=== PATIENT | female | born 1980 | race Two or more races ===

== ENCOUNTER 2019-01-08 10:55 | Emergency (ER) | payer MEDICAID ==
[~2019-01-08] VITALS: Ht 154.9 cm; Wt 76.0 kg
[2019-01-08 10:58] VITALS: BP 115/73
== END 2019-01-08 14:14 | disposition home or self-care (01) ==
LOC: ED 12:09
DX: S82.042A Displaced comminuted fracture of left patella, initial encounter for closed fracture (principal); W01.0XXA Fall on same level from slipping, tripping and stumbling without subsequent striking against object, initial encounter; Y93.89 Activity, other specified; Y92.89 Other specified places as the place of occurrence of the external cause; Y99.8 Other external cause status
CPT/HCPCS: 29505; 99284

== ENCOUNTER 2019-01-15 23:04 | Emergency (ER) | payer MEDICAID ==
[~2019-01-15] VITALS: Ht 154.9 cm; Wt 76.0 kg
[2019-01-15 23:06] VITALS: BP 121/71
== END 2019-01-16 00:18 | disposition home or self-care (01) ==
LOC: ED 01-16 00:01
DX: G89.18 Other acute postprocedural pain (principal); M25.562 Pain in left knee; Z87.891 Personal history of nicotine dependence
CPT/HCPCS: 99283

== ENCOUNTER 2019-10-13 13:57 | Emergency (ER) | payer MEDICAID ==
[~2019-10-13] VITALS: Ht 154.9 cm; Wt 75.0 kg
[2019-10-13 14:04] VITALS: BP 93/62
--- NOTE | 2019-10-13 14:25 | NUR ---
RECEIVED REPORT BARBARA ACOSTA RN. PT RESTING ON [place] W/ CALL LIGHT IN REACH. DENIES FURTHER NEEDS AT THIS TIME.
--- NOTE | 2019-10-13 15:25 | NUR ---
Patient given discharge instructions and they have confirmed that they understand the instructions. Patient ambulatory with steady gait.
== END 2019-10-13 15:26 | disposition home or self-care (01) ==
LOC: ED 14:26
DX: U07.1 COVID-19 (principal); J02.9 Acute pharyngitis, unspecified; R51 Headache; R19.7 Diarrhea, unspecified
CPT/HCPCS: 99283; U0001

== ENCOUNTER 2019-12-14 14:53 | Emergency (ER) | payer MEDICAID ==
[~2019-12-14] VITALS: Ht 154.9 cm; Wt 83.0 kg
[2019-12-14] MEDS ORDERED: ACETAMINOPHEN 325 MG TABLET PO ONE (15:30)
[2019-12-14] MEDS ORDERED: ACETAMINOPHEN 325 MG TABLET ONE (15:33)
--- NOTE | 2019-12-14 15:46 | NUR ---
TYLENOL OFFERED TO PT ORDERED. PT REQUESTING "SOMETHING STRONGER". NOTE TO ERP TO NOTIFY OF REQUEST.
--- NOTE | 2019-12-14 15:47 | NUR ---
PT AMBULATED TO BR WITH SBA. NO DIZZINESS, STEADY GAIT.
[2019-12-14] MEDS ORDERED: METHOCARBAMOL 750 MG TABLET PO ONE (16:00)
[2019-12-14] MEDS ORDERED: METHOCARBAMOL 750 MG TABLET ONE (16:07)
--- NOTE | 2019-12-14 16:09 | NUR ---
PT BACK FROM CT. MEDICATED WITH ROBAXIN AND TYLENOL PER ORDER. CALL LIGHT WITHIN REACH, AT BS.
--- NOTE | 2019-12-14 16:12 | NUR ---
CT RESULTED, PT FOR RECHECK.
[2019-12-14 17:47] VITALS: BP 112/61
== END 2019-12-14 17:49 | disposition home or self-care (01) ==
LOC: ED 17:10
DX: S09.90XA Unspecified injury of head, initial encounter (principal); R42 Dizziness and giddiness; Z87.891 Personal history of nicotine dependence; X58.XXXA Exposure to other specified factors, initial encounter; Y93.89 Activity, other specified; Y92.830 Public park as the place of occurrence of the external cause; Y99.8 Other external cause status
CPT/HCPCS: 70450; 99284

== ENCOUNTER 2020-05-23 22:22 | Emergency (ER) | payer MEDICAID ==
[~2020-05-23] VITALS: Ht 154.9 cm; Wt 86.2 kg
--- NOTE | 2020-05-23 23:13 | NUR ---
cc of abd pain and senior, is covid +. daughter at bedside to be tested as well
[2020-05-23 23:18] VITALS: BP 92/62
== END 2020-05-24 | disposition home or self-care (01) ==
LOC: ED 23:35
DX: B34.9 Viral infection, unspecified (principal); Z20.828 Contact with and (suspected) exposure to other viral communicable diseases; J02.9 Acute pharyngitis, unspecified; R05 Cough
CPT/HCPCS: 87635; 99283

== ENCOUNTER 2020-06-03 16:14 | Emergency (ER) | payer MEDICAID ==
[~2020-06-03] VITALS: Ht 154.9 cm; Wt 87.0 kg
[2020-06-03 16:21] VITALS: BP 106/56
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
[2020-06-03] MEDS ORDERED: IBUPROFEN 200 MG TABLET ONE (17:05)
[2020-06-03] MEDS ORDERED: IBUPROFEN 800 MG TABLET ONE (17:07)
[2020-06-03] MEDS ORDERED: IBUPROFEN 800 MG TABLET PO ONE (17:30)
--- NOTE | 2020-06-03 17:39 | NUR ---
NO SIG CHANGE IN PAIN AT THIS TIME. CHARLINE WRAP IN PLACE. NO IV TO DC, REVIEWED DC INSTRUCTIONS WITH PT, UNDERSTANDING VERBALIZED. PT DECLINED W/C. PT LEFT AMB, GAIT STEADY
== END 2020-06-03 17:41 | disposition home or self-care (01) ==
LOC: ED 17:24
DX: M17.12 Unilateral primary osteoarthritis, left knee (principal); Z87.891 Personal history of nicotine dependence
CPT/HCPCS: 99283

== ENCOUNTER 2020-10-08 13:50 | Emergency (ER) | payer MEDICAID ==
[~2020-10-08] VITALS: Ht 154.9 cm; Wt 94.5 kg
[2020-10-08 14:08] VITALS: BP 116/84
[2020-10-08] MEDS ORDERED: KETOROLAC 30 MG/1 ML ONE (14:45)
[2020-10-08] MEDS ORDERED: KETOROLAC 30 MG/1 ML IM ONE (15:00)
--- NOTE | 2020-10-08 15:41 | NUR ---
PT REFUSING CRUTCHES AT THIS TIME, PT STATES SHE WOULD RATHER JUST WALK. PT AMBULATED STEADILY TO DISCHARGE DESK.
== END 2020-10-08 15:47 | disposition home or self-care (01) ==
LOC: ED 15:41
DX: S80.02XA Contusion of left knee, initial encounter (principal); W18.30XA Fall on same level, unspecified, initial encounter; Y93.89 Activity, other specified; Y92.410 Unspecified street and highway as the place of occurrence of the external cause; Y99.8 Other external cause status
CPT/HCPCS: 29505; 99283